=== PATIENT | male | born 1965 | race Caucasian/White ===

== ENCOUNTER 2023-09-18 02:41 | Emergency (ER) | payer BC, SELFPAY ==
[2023-09-18 02:51] VITALS: BP 183/98
--- NOTE | 2023-09-18 03:28 | ED.GENMED ---
History of Present Illness
<ARELY Bhakta - Last Filed: 09/18/23 06:18>
General
Chief Complaint: Musculo-Skeletal Complaint
Source: patient
Exam Limitations: none
Time Seen by Provider: 09/18/23 03:15
Nursing documentation reviewed up to this point in time: agreed with
Travel History
Have you had any contact with someone who has COVID-19?: No
Do you have any symptoms of coronavirus? Fever > 100 degrees, chills, cough, shortness of breath, sore throat, loss of taste or smell, muscle aches, or headache?: No
History of Present Illness
History of Present Illness:
patient is a 58 y/o male presenting with neck pain x 1 day. Patient states the pain started last night at 3:30am when patient was asleep. Patient states the pain started as neck stiffness that radiates down his right arm into his fifth digit.
Patient states that the pain that radiates feels like pins and needles. Patient admits that positioning the neck in flexion helps with the pain. Patient admits to taking Tylenol and Flexeril with no relief. Patient admits that heat on his neck help
alleviate pain. Patient admits to weakness in his arm and 5th digit. Patient states he gets associated nausea with the pain spontaneously. Patient denies any trauma to the area. Patient denies any previous episodes. Patient denies any tobacco or
alcohol in the last 48 hrs. Patient is on Eliquis.
Past History
<ARELY Bhakta - Last Filed: 09/18/23 06:18>
Past History
ED Past Medical History: HTN, Hypothyroidism and Other (chronic back pain)
Social History
Tobacco: Non-smoker
Personal:
Living: with family
Employment: Employed
Review of Systems
<ARELY Bhakta - Last Filed: 09/18/23 06:18>
Review of Systems
All Other Systems: Not applicable
Constitutional: Reports no symptoms
EENT: Reports no symptoms
Respiratory: Reports no symptoms
Cardiac: Reports no symptoms
ABD/GI: Reports nausea
: Reports no symptoms
Musculoskeletal: Reports muscle pain, muscle stiffness, neck pain and back pain
Skin: Reports no symptoms
Neurological: Reports other (paresthesia down right arm )
Endocrine: Reports no symptoms
Hematologic/Lymphatic: Reports no symptoms
Psychiatric: Reports no symptoms
Phy Exam
<ST LiviaSD - Last Filed: 09/18/23 06:18>
General Physical Exam
General Presentation: well appearing and no apparent distress
General Skin: warm and dry
General Habitus: normal
General Mental: alert
General Hydration: appears well hydrated
ENT Exam
ENT Exam: EOMI, pharynx normal, neck supple and normocephalic
Eye Exam
Eye Exam: PERRL, cornea clear and conjunctiva normal
Cardiovascular Exam
Cardiovascular Exam: regular rate/rhythm, no edema, no murmur and normal peripheral pulses
Pulmonary Exam
Pulmonary Exam: lungs clear, no respiratory distress, no rales, no crackles, no rhonchi, no stridor, no wheezing and no cough
Gastrointestinal Exam
Gastrointestinal Exam: normal bowel sounds, non tender, soft, no organomegaly, no pulsatile mass and non distended
Neurological Exam
Neurological Exam: alert, oriented x3, no motor deficits and speech normal
Musculoskeletal Exam
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
Skin Exam
Skin Exam: normal color, warm/dry, no rash and no petechia
Psychiatric Exam
Psychiatric Exam: normal mood/affect
[facility]
<[facility] Last Filed: 09/18/23 06:18>
Orders/Labs/Results
Orders:
Orders
09/18/23 04:00
Diazepam [Valium] 5 mg PO NOW STA
Vital Signs
Initial and Last Documented VS:
Initial Vital Signs
Temp Pulse Resp BP Pulse Ox
98.0 F 68 16 183/98 96
09/18/23 02:51 09/18/23 02:51 09/18/23 02:51 09/18/23 02:51 09/18/23 02:51
Last Documented Vital Signs
Temp Pulse Resp BP Pulse Ox
98.0 F 68 16 183/98 96
09/18/23 02:51 09/18/23 02:51 09/18/23 02:51 09/18/23 02:51 09/18/23 02:51
<Esteban Garcia DO - Last Filed: 09/18/23 06:30>
Orders/Labs/Results
Orders:
Orders
09/18/23 04:00
Diazepam [Valium] 5 mg PO NOW STA
Vital Signs
Initial and Last Documented VS:
Initial Vital Signs
Temp Pulse Resp BP Pulse Ox
98.0 F 68 16 183/98 96
09/18/23 02:51 09/18/23 02:51 09/18/23 02:51 09/18/23 02:51 09/18/23 02:51
Last Documented Vital Signs
Temp Pulse Resp BP Pulse Ox
98.0 F 68 16 183/98 96
09/18/23 02:51 09/18/23 02:51 09/18/23 02:51 09/18/23 02:51 09/18/23 02:51
<ARELY Bhakta - Last Filed: 09/18/23 06:18>
MDM/Problems Addressed
Differential Diagnosis Includes:
cervical radiculopathy
spinal stenosis
herniated disc
MDM/Problems Addressed:
neck pain
<ARELY Bhakta - Last Filed: 09/18/23 06:18>
*Critical Care Note
Total Time (30-74mins, 75-104mins- exclusive of procedures): Not Applicable
<ARELY Bhakta - Last Filed: 09/18/23 06:18>
Update Note
Update Note:
09/18/2023 0520 AM. Patient sleeping. Patient stated medication allowed him to get comfortable enough to sleep.
<Esteban Garcia DO - Last Filed: 09/18/23 06:30>
Update Note
Update Note:
09/18/2023 0520 AM. Patient sleeping
ED Attending Note
<ARELY Bhakta - Last Filed: 09/18/23 06:18>
-
Portions of this chart may have been created with voice recognition software.� Occasional wrong word or��sound alike� substitutions may have occurred due to the inherent limitations of voice recognition software.
<Esteban Garcia DO - Last Filed: 09/18/23 06:30>
ED Attending Note
Patient seen and examined by attending physician: Yes
I performed the substantive portion of visit, reviewed & personally made and approve the management plan that is documented in note by myself or FRANCOIS.: Yes
ED Attending Note:
Pleasant 58-year-old male that presents with neck pain that has been present for the last day. He states that at 3 AM he developed muscle spasm in his neck. He was able to take a Flexeril, he reports that it somewhat relieved his pain. He states
that he was on a [place] [employer] road trip and did much of the driving. He states that this exacerbated his symptoms. Patient denies any trauma. Reports no previous episodes. Denies any other symptoms at this time. 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
with the PA student. I have reviewed and agree with the history and treatment plan presented. On my independent physical exam, patient is awake, alert, and oriented x3, moderate acute distress. There is spasm in the right side of the neck. Lungs
clear to auscultation bilaterally without wheezes rales or rhonchi present.
Discharge Plan
Departure
Patient Disposition: Home (Routine Discharge)
Date of Disposition: 09/18/23
Time of Disposition: 06:28
Patient with high blood pressure during this ER visit?: Yes
Condition: Good
Discharge Problem:
Acute torticollis
Instructions: BLOOD PRESSURE
Prescriptions:
New
diazepam [Valium] 10 mg tablet
10 mg PO BID PRN (Reason: muscle spasm) Qty: 10 0RF
No Action
levothyroxine [Synthroid] 137 mcg Tablet
137 mcg PO DAILY
diltiazem HCl 240 mg Capsule,Extended Release 24 Hr
240 mg PO DAILY
metoprolol succinate 25 mg Tablet Extended Release 24 Hr
25 mg PO DAILY
cholecalciferol (vitamin D3) [Vitamin D3] 125 mcg (5,000 unit) Tablet
250 mcg PO DAILY
Eliquis 5 mg Tablet
5 mg PO BID
prednisone 10 MG tablet
10 mg PO DAILY
cyclobenzaprine 10 mg Tablet
10 mg PO TID PRN (Reason: back pain)
Referrals:
[facility] - Call in 1-3 days for appt
Shlomo Lemon DO [Family Provider] -
Activity Restrictions/Additional Instructions:
It was a pleasure meeting you and taking part in your care. We hope for your continued healing and wellness.
Please read discharge instructions in their entirety. However, they are for general education and may not describe your exact diagnosis at discharge. Information on your ER visit and medical conditions were discussed with you along with appropriate
follow up information...
If indicated, please take your medications as instructed and indicated on discharge paperwork.
Please schedule a follow up appointment as directed. Call to schedule an appointment
Please return to the emergency department with ANY change in, persisting, or worsening of symptoms. If any of your symptoms do not improve, or persist, or become more severe within 6-12 hours, please return to the emergency department for further
care.
Please return to the emergency department if you develop a headache, neck pain/stiffness, fever greater than 100.4F, chest pain, shortness of breath, persistent nausea, vomiting, slurred speech, difficulty walking, numbness/tingling, weakness, signs
of infection or any other symptoms that are worrisome to you.
If you have any questions or concerns please do not hesitate to call the Hospital at or E-mail me directly at [email or web address]
Interventions
Interventions:
*Risk Screen - Suicide Last Done: 09/18/23 02:56
*General Assessment Last Done: 09/18/23 05:28
*Neglect/Abuse Screening Last Done: 09/18/23 02:56
*ED COVID-19 Vaccine History Last Done: 09/18/23 02:56
ED-Musculoskeletal Assessment Last Done: 09/18/23 03:27
Discharge Date and Time
Print Language: ALBANIAN
[2023-09-18] MEDS: VALIUM 5 MG PO (04:08)
[2023-09-18 06:44] VITALS: BP 168/92
== END 2023-09-18 06:45 | disposition home or self-care (01) ==
LOC: EMR 02:41
PROVIDERS: EMERGENCY PHYSICIAN Student in an Organized Health Care Education/Training Program; FAMILY PHYSICIAN Student in an Organized Health Care Education/Training Program
DX: M43.6 Torticollis (principal)
CPT/HCPCS: 99283